=== PATIENT | female | born 1995 | race Caucasian/White ===

== ENCOUNTER 2016-07-01 00:27 | Emergency (ER) | payer OTHER ==
--- NOTE | 2016-07-01 00:59 | PDOC ---
History of Present Illness <Edil Mistry - Last Filed: 07/01/16 01:07> - General History Source: Patient, Old Records Exam Limitations: No Limitations - History of Present Illness Initial Comments: 07/01/16 01:21 The patient is a 20 year old female (; currently approximately 9 weeks ), with no significant past medical history, who presents to the emergency department with a sore throat and cough since earlier tonight. The patient reports that she was drinking tea tonight and subsequently began coughing so she came to the ED for further evaluation. Currently in the ED, the patient is endorsing a sore throat. The patient denies fever, chills, nausea or vomiting. The patient denies any sick contacts. Allergies: None reported. Past Surgical History: Appendectomy. Social History: Non smoker. Denies alcohol or drug use. PCP: Dr. Navarrete <Brooklynn Jose - Last Filed: 07/01/16 01:21> - General Chief Complaint: Sore Throat Stated Complaint: 9 WKS PREG/SORE THROAT/COLD SYMPTOMS Time Seen by Provider: 07/01/16 00:58 Past History - Past Medical History Suicide Attempt (Hx): No - Surgical History Appendectomy: Yes - Immunization History Immunization Up to Date: Yes - Psycho/Social/Smoking Cessation Hx Anxiety: No Suicidal Ideation: No Smoking Status: No Smoking History: Never smoked Have you smoked in the past 12 months: No Number of Cigarettes Smoked Daily: 0 Hx Alcohol Use: No Drug/Substance Use Hx: No Substance Use Type: None Hx Substance Use Treatment: No <Edil Mistry - Last Filed: 07/01/16 01:07> <Brooklynn Jose - Last Filed: 07/01/16 01:21> - Past Medical History Allergies/Adverse Reactions: Allergies Allergy/AdvReac Type Severity Reaction Status Date / Time No Known Allergies Allergy Verified 07/01/16 00:55 Home Medications: Ambulatory Orders NK [No Known Home Medication] 12/04/15 Review of Systems - Review of Systems Able to Perform ROS?: Yes Comments:: 07/01/16 01:13 GENERAL/CONSTITUTIONAL: No fever or chills. No weakness. HEAD, EYES, EARS, NOSE AND THROAT: +Sore throat. No change in vision. No ear pain or discharge. CARDIOVASCULAR: No chest pain or shortness of breath. RESPIRATORY: +Cough. No wheezing or hemoptysis. GASTROINTESTINAL: No nausea, vomiting, diarrhea or constipation. GENITOURINARY: No dysuria, frequency, or change in urination. MUSCULOSKELETAL: No joint or muscle swelling or pain. No neck or back pain. SKIN: No rash. NEUROLOGIC: No headache, vertigo, loss of consciousness, or change in strength/ sensation. ENDOCRINE: No increased thirst. No abnormal weight change. HEMATOLOGIC/LYMPHATIC: No anemia, easy bleeding, or history of blood clots. ALLERGIC/IMMUNOLOGIC: No hives or skin allergy. <Brooklynn Jose - Last Filed: 07/01/16 01:21> *Physical Exam - Vital Signs Last Vital Signs Temp Pulse Resp BP Pulse Ox 98 F 75 20 116/72 100 07/01/16 00:57 07/01/16 00:57 07/01/16 00:57 07/01/16 00:57 07/01/16 00:57 <Edil Mistry - Last Filed: 07/01/16 01:07> - Vital Signs Last Vital Signs Temp Pulse Resp BP Pulse Ox 98 F 75 20 116/72 100 07/01/16 00:57 07/01/16 00:57 07/01/16 00:57 07/01/16 00:57 07/01/16 00:57 - Physical Exam Comments: 07/01/16 01:12 GENERAL: Awake, alert, and fully oriented, in no acute distress. HEAD: No signs of trauma. EYES: PERRLA, EOMI, sclera anicteric, conjunctiva clear. ENT: Auricles normal inspection, hearing grossly normal, nares patent, oropharynx clear without exudates. Moist mucosa. NECK: Normal ROM, supple, no lymphadenopathy, JVD, or masses. LUNGS: Breath sounds equal, clear to auscultation bilaterally. No wheezes, and no crackles. HEART: Regular rate and rhythm, normal S1 and S2, no murmurs, rubs or gallops. ABDOMEN: Soft, nontender, normoactive bowel sounds. No guarding, no rebound. No masses. EXTREMITIES: Normal range of motion, no edema. No clubbing or cyanosis. No cords, erythema, or tenderness. NEUROLOGICAL: Cranial nerves II through XII intact. Normal speech, normal gait. SKIN: Warm, dry, normal turgor, no rashes or lesions noted. <Brooklynn Jose - Last Filed: 07/01/16 01:21> *DC/Admit/Observation/Transfer - Discharge Dispostion Admit: No - Attestations Physician Attestion: 07/01/16 00:59 I, Dr. Edil Mistry, attest that this document has been prepared under my direction and personally reviewed by me in its entirety. I further attest, that it accurately reflects all work, treatment, procedures and medical decision -making performed by me. <Edil Mistry - Last Filed: 07/01/16 01:07> - Attestations Scribe Attestion: 07/01/16 01:11 Documentation prepared by Brooklynn Jose, acting as medical director occupational health for Edil Mistry MD/DO. <Brooklynn Jose - Last Filed: 07/01/16 01:21> Diagnosis at time of Disposition: URI (upper respiratory infection) Qualifiers: URI type: unspecified viral URI Qualified Code(s): J06.9 - Acute upper respiratory infection, unspecified - Discharge Dispostion Disposition: HOME Condition at time of disposition: Good - Referrals Referrals: Steph Navarrete MD [Primary Care Provider] - - Patient Instructions Printed Discharge Instructions: DI for Viral Upper Respiratory Infection -- Adult Additional Instructions: Evania- You can have tylenol for pain or fever. Use a Tablespoon of honey every hour to coat the throat and supress the cough. Follow up with your doctor tomorrow. Return to us if any problems. Best- Dr. Edil Mistry
[2016-07-01 01:09] VITALS: BP 116/72; PULSE 75; TEMP 98; BMI 21.9
== END 2016-07-01 01:50 | disposition home or self-care (01) ==
LOC: JER 00:27
DX: J06.9 Acute upper respiratory infection, unspecified (principal); Z3A.09 9 weeks gestation of pregnancy
CPT/HCPCS: 87070; 87077; 99281-25

== ENCOUNTER 2016-07-06 21:13 | Emergency (ER) | payer OTHER ==
[2016-07-06 21:19] VITALS: BP 112/55; PULSE 98; TEMP 98.3; BMI 21.9
--- NOTE | 2016-07-06 21:29 | PDOC ---
History of Present Illness - General Chief Complaint: Headache Stated Complaint: HEADACHE Time Seen by Provider: 07/06/16 21:28 History Source: Patient Exam Limitations: No Limitations - History of Present Illness Initial Comments: 07/06/16 21:56 Came to emergency department for evaluation of facial pain, swelling, fevers Tmax 100.7 at home, and thick yellow white drainage from nose. Is 12 weeks and has taken no medication for relief of same. Denies cough, nausea vomiting, no vaginal drainage bleeding or problems with thus far. 07/06/16 21:56 07/06/16 23:09 Timing/Duration: reports: unknown Severity: Yes: moderate Associated Symptoms: reports: denies symptoms. denies: fever/chills, loss of consciousness Past History - Travel Traveled outside of the country in the last 30 days: No Close contact w/someone who was outside of country & ill: No - Past Medical History Allergies/Adverse Reactions: Allergies Allergy/AdvReac Type Severity Reaction Status Date / Time No Known Allergies Allergy Verified 07/06/16 21:15 Home Medications: Ambulatory Orders Amoxicillin - [Amoxicillin 500mg Capsule -] 500 mg PO TID #21 capsule 07/06/16 Suicide Attempt (Hx): No - Surgical History Appendectomy: Yes - Immunization History Immunization Up to Date: Yes - Psycho/Social/Smoking Cessation Hx Anxiety: No Suicidal Ideation: No Smoking Status: No Smoking History: Never smoked Have you smoked in the past 12 months: No Number of Cigarettes Smoked Daily: 0 Hx Alcohol Use: No Drug/Substance Use Hx: No Substance Use Type: None Hx Substance Use Treatment: No Review of Systems - Review of Systems Able to Perform ROS?: Yes Is the patient limited Swedish proficient: Yes Constitutional: Yes: Symptoms Reported, See HPI, Malaise HEENTM: Yes: Symptoms Reported, See HPI, Nose Congestion Respiratory: Yes: See HPI, Cough (nonproductive). No: Symptoms reported, Shortness of Breath, Wheezing ABD/GI: No: Symptoms Reported Musculoskeletal: No: Symptoms Reported All Other Systems: Reviewed and Negative *Physical Exam - Vital Signs Last Vital Signs Temp Pulse Resp BP Pulse Ox 98.3 F 98 H 18 112/55 99 07/06/16 21:16 07/06/16 21:16 07/06/16 21:16 07/06/16 21:16 07/06/16 21:16 - Physical Exam General Appearance: Yes: Nourished, Appropriately Dressed, Apparent Distress, Mild Distress, Moderate Distress HEENT: positive: ZANDER, TMs Normal (congestive but landmarks easily visualized), Nasal Congestion, Rhinorrhea, Sinus Tenderness (frontal, ethmoid, and maxillary sinus tenderness and fullness, worse on the right than the left), Other (thick whitish yellow posterior sinus drainage). negative: Normal ENT Inspection, Pharynx Normal, Pharyngeal Erythema Neck: positive: Supple, Lymphadenopathy (R), Lymphadenopathy (L) (tenderness ) Respiratory/Chest: positive: Lungs Clear, Normal Breath Sounds. negative: Wheezing Cardiovascular: positive: Regular Rhythm Gastrointestinal/Abdominal: positive: Soft. 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, Fully Oriented, Alert, Normal Mood/ Affect, Normal Response, Motor Strength 5/5 Progress Note - Progress Note Progress Note: Sinusitis, as patient has fever, has tried [id number] and old-fashioned remedies with no success Will treat with amoxicillin and have patient approval from [employer] tomorrow for continued use for antibiotics and first trimester *DC/Admit/Observation/Transfer Diagnosis at time of Disposition: Sinusitis Qualifiers: Sinusitis location: frontal Chronicity: acute Recurrence: not specified as recurrent Qualified Code(s): J01.10 - Acute frontal sinusitis, unspecified - Discharge Dispostion Disposition: HOME Condition at time of disposition: Stable Admit: No - Prescriptions Prescriptions: Amoxicillin - [Amoxicillin 500mg Capsule -] 500 mg PO TID #21 capsule - Referrals Referrals: Steph Navarrete MD [Primary Care Provider] - - Patient Instructions Printed Discharge Instructions: DI for Sinusitis Additional Instructions: Rest, drink lots of fluids: Teas, water, soups Saltwater gargles. Consider humidifier in room at night Steamy showers/seem to face break up mucus Avoid contact with allergens, exposure to pollens, close windows on a windy day Lots of handwashing and good hygiene Tylenol for fever and pain Amoxicillin 500 mg 3 times a day, verifying with OB/ [employer] doctor to ensure in agreement with plan Followup with private physician in one to 2 days as needed Return to emergency department for worsened symptoms, fevers, dehydration - Post Discharge Activity Work/School Note: Back to Work
[2016-07-06] MEDS ORDERED: AMOXICILLIN 250 MG CAPSULE ONE (21:35)
== END 2016-07-06 22:15 | disposition home or self-care (01) ==
LOC: JER 21:13 → JERFT 21:13
DX: O99.89 Other specified diseases and conditions complicating pregnancy, childbirth and the puerperium (principal); J01.10 Acute frontal sinusitis, unspecified; Z3A.12 12 weeks gestation of pregnancy
CPT/HCPCS: 99281-25

== ENCOUNTER 2017-01-12 16:02 | Inpatient (IN) | payer OTHER ==
[2017-01-12] MEDS ORDERED: DEXTROSE 5%-LACTATED RINGERS 500 ML IV SCH ×2 (16:30→17:30)
[2017-01-12] MEDS ORDERED: DEXTROSE 5%-LACTATED RINGERS 1,000 ML IV SCH (19:30)
[2017-01-12] MEDS ORDERED: PROMETHAZINE HCL 25 MG/1 ML VIAL IVPB ONE (21:15)
[2017-01-12] MEDS ORDERED: BUTORPHANOL TARTRATE 1 MG/ML VIAL IVPB ONE (21:15)
[2017-01-13] MEDS ORDERED: AMPICILLIN - 2 GM in SODIUM CHLORIDE 100 ML IVPB ONE (04:50)
[2017-01-13 04:57] LABS: BASOPHIL 0.4 % (0-2.0); EOSINOPHIL 0.2 % (0-4.5); MCH 31.7 pg (25.7-33.7); MCHC 33.9 g/dl (32.0-36.0); MEAN CELL VOLUME 93.4 fl (80-96); MEAN PLT VOLUME 10.1 fl (7.5-11.1); NEUTROPHILS 77.4 % (42.8-82.8); PLATELET COUNT 147 K/MM3 (134-434); RDW 13.5 % (11.6-15.6); WHITE BLOOD COUNT 12.5 K/mm3 (4.0-10.0)
[2017-01-13 05:10] LABS: INR 0.97 (0.82-1.09)
[2017-01-13 05:12] LABS: ACTIVATED PTT 27.9 SECONDS (26.9-34.4)
[2017-01-13 05:24] VITALS: BMI 25.1
[2017-01-13 05:34] LABS: ALBUMIN 2.6 g/dl (3.4-5.0); ALK PHOS 271 U/L (45-117); ANION GAP 7 (8-16); BILIRUBIN,TOTAL 0.7 mg/dL (0.2-1.0); CALCIUM 8.9 mg/dL (8.5-10.1); CO2 28 mmol/L (21-32); CREATININE 0.8 mg/dL (0.55-1.02); GLUCOSE,RANDOM 98 mg/dL (74-106); SGOT/AST 23 U/L (15-37); SGPT/ALT 25 U/L (12-78); TOT PROT 6.2 g/dl (6.4-8.2)
[2017-01-13] MEDS ORDERED: TUBERCULIN PPD 5 TU/0.1ML SYRINGE (IN PATIENT USE ONLY) ID ONE (05:45)
[2017-01-13 05:53] LABS: HIV 1 & 2 AB NEGATIVE; HIV 1 AGp24 NEGATIVE
--- NOTE | 2017-01-13 06:27 | HP ---
Admitting History and Physical - Admission Chief Complaint: labor pains History of Present Illness: 21 y/o at 38.4 weeks with complaints of labor pains. She was here during the day and stayed with complaints of pain. She SROM at 4am now with dilation of 2-3cm. The FHT developed a sinusidoal type of pattern but is now cat 1. She is a patient of [facility]. 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: Alzheimer's, CVA, Dementia, Migraine, Multiple Sclerosis, Peripheral Neuropathy, Parkinson's, Seizure, Syncope, TIA, Vertigo, Other Cardiovascular: No: AFIB, Aneurysm, Aortic Insufficiency, Aortic Stenosis, CAD, CHF, Deep Vein Thrombosis, HTN, Hyperlipdemia, NM, Mitral Insufficiency, Mitral Stenosis, Murmur, Pulmonary Hypertension, Other Pulmonary: No: Asthma, Bronchitis, Cancer, COPD, O2 Dependent, Pneumonia, Previously Intubated, Pulmonary Embolus, Pulmonary Fibrosis, Sleep Apnea, Other Gastrointestinal: No: Ascites, Cancer, Constipation, Crohn's Disease, Diverticulitis, Diverticulosis, Esophageal Varices, Gastritis, GERD, GI Bleed, Hemorrhoids, Hiatal Hernia, Inflamatory Bowel Disease, Irritable Bowel Disease, Pancreatitis, Peptic Ulcer Disease, Ulcerative Colitis, Other Hepatobiliary: No: Cirrhosis, Cholelithiasis, Cholecystitis, Choledocholithiasis , Hepatitis A, Hepatitis B, Hepatitis C, Other Renal/: No: Renal Failure, Renal Inusuff, BPH, Cancer, Hematuria, Hemodialysis , Neurogenic Bladder, Renal Calculi, UTI, Other Reproductive: No: Ectopic , Endometriosis, Fibroids, PID, Polycystic Ovary Syndrome, Postmenopausal, Other ...LMP: 08/23/15 ...: 2 ...Para: 0 Heme/Onc: No: Anemia, B12 Deficiency, Bleeding Disorder, Cancer, Current Chemotherapy, Current Radiation Therapy, Hemochromatosis, Hypercoaguable State, Myeloproliferative Synd, Sickle Cell Disease, Sickle Cell Trait, Thrombocytopenia, Other Psych: No: Addictions, Anxiety, Bipolar, Depression, Panic, Psychosis, Schizophrenia, Other Musculoskeletal: No: Bursitis, Chronic low back pain, Hemiparesis, Hemiplegia, Osteoarthritis, Paraplegia, Other Dermatology: No: Basal Cell, Cellulitis, Eczema, Melanoma, Psoriasis, Squamous Cell, Other - Past Surgical History Past Surgical History: No: None, AAA Repair, AICD, Amputation, Appendectomy, Arthrosocopy, AV Fistula/Graft, Bariatric Surgery, Breast Biopsy, Bypass, CABG, Carotid Endarterectomy, Cataract Removal, Cholecystectomy, Colectomy, Colonoscopy, Colostomy, Craniotomy, , Cystectomy, Hernia Repair, Hysterectomy, Ileal Conduit, Ileosotomy, Joint Replacement, Kidney Transplant, Laminectomy, Liver Transplant, Mastectomy, Nephrectomy, Oopherectomy, Orchiectomy, Permanent Pacemaker, Prostatectomy, Splenectomy, Stent, Thoracotomy , TURP, Tonsillectomy, Tubal Ligation, Upper Endoscopy, Valve Replacement, Vasectomy, Vein Stripping/Ligation - Advance Directives Advance Directives: No: Living Will, Health Care Proxy, DNR, Organ Donor, Tissue Donor, MOLST - Smoking History Smoking history: Unknown if ever smoked Have you smoked in the past 12 months: No Aproximately how many cigarettes per day: 0 - Alcohol/Substance Use Hx Alcohol Use: No Home Medications - Allergies Allergies/Adverse Reactions: Allergies Allergy/AdvReac Type Severity Reaction Status Date / Time No Known Allergies Allergy Verified 01/12/17 16:47 - Home Medications Home Medications: Ambulatory Orders Vit/Iron Fumarate/FA [ Tablet] 1 tab PO DAILY 12/31/16 Review of Systems - Review of Systems Constitutional: reports: No Symptoms Eyes: reports: No Symptoms HENT: reports: No Symptoms Neck: reports: No Symptoms Cardiovascular: reports: No Symptoms Gastrointestinal: reports: No Symptoms Genitourinary: reports: No Symptoms Breasts: reports: No Symptoms Reported Musculoskeletal: reports: No Symptoms Integumentary: reports: No Symptoms Neurological: reports: No Symptoms Endocrine: reports: No Symptoms Hematology/Lymphatic: reports: No Symptoms Psychiatric: reports: No Symptoms Physical Examination Vital Signs: Vital Signs Temperature 97.6 F 01/13/17 05:13 Pulse Rate 77 01/13/17 05:13 Respiratory Rate 20 01/13/17 05:13 Blood Pressure 111/65 01/13/17 05:13 O2 Sat by Pulse Oximetry (%) Constitutional: Yes: Well Nourished Eyes: Yes: WNL HENT: Yes: WNL Neck: Yes: WNL Cardiovascular: Yes: WNL Respiratory: Yes: WNL Gastrointestinal: Yes: WNL ...Rectal Exam: Yes: WNL Renal/: Yes: WNL Musculoskeletal: Yes: WNL Extremities: Yes: WNL Neurological: Yes: WNL ...Motor Strength: WNL Psychiatric: Yes: WNL Labs: CBC, BMP 01/13/17 04:40 01/13/17 04:40 Assessment/Plan as above admit labs pitocin
[2017-01-13] MEDS: OXYTOCIN 15 UNITS/ LR 250 ML 250 ML IVPB SCH ×2 (07:40→08:12)
--- NOTE | 2017-01-13 07:40 | PN ---
Ante-Partal Exam - Subjective Vital Signs: Vital Signs Temperature 98.2 F 01/13/17 07:00 Pulse Rate 94 H 01/13/17 07:00 Respiratory Rate 20 01/13/17 07:00 Blood Pressure 126/67 01/13/17 07:00 O2 Sat by Pulse Oximetry (%) Bleeding: No Headache: No Visual changes: No Right upper quadrant pain: No - Contractions Contractions: Yes Regularity: Irregular Intensity: Mild/Mod Monitor Mode: External - Exam during Labor Heart Rate: 150 Variability: Moderate Heart Rate Location: Midline Category: I Monitor Accelerations: Present Monitor Decelerations: None Exam: Vaginal Dilatation (cm): 2 Effacement (%): 70 Amniotic Membrane Status: Ruptured Presentation: Vertex Station: -2 - Assessment/Plan Assessment/Plan: as above will start pitocin cat 1
[2017-01-13] MEDS ORDERED: BUTORPHANOL TARTRATE 1 MG/ML VIAL IVPUSH PRN (07:45)
[2017-01-13] MEDS ORDERED: PROMETHAZINE HCL 25 MG/1 ML VIAL IVPUSH PRN (07:46)
[2017-01-13] MEDS ORDERED: AMPICILLIN - 1 GM in SODIUM CHLORIDE 100 ML IVPB SCH (09:00)
--- NOTE | 2017-01-13 09:33 | PN ---
Progress Note (short form) - Note Progress Note: cx 2 cm 70 vx -2 mr, forbag intact , arom , clear, fh cat i tracing, irregular contraction plan cont pitocin, fhm
--- NOTE | 2017-01-13 11:36 | PN ---
Progress Note (short form) - Note Progress Note: cx 2 cm 75 vx -2 mr, fhr cat1 , regular contraction, wants pain meds , epidural , stadol discussed , rba explained , declined epidural
[2017-01-13] MEDS: ELECTROLYTE-148 SOLN 1,000 ML IV SCH ×3 (11:50→17:34)
[2017-01-13] MEDS ORDERED: ELECTROLYTE-148 SOLN 1,000 ML IV SCH (12:00)
[2017-01-13] MEDS ORDERED: FENTANYL/BUPIVACAINE/NS/PF - PCEA - 50 ML DISP.SYRIN EP SCH (12:20)
[2017-01-13] MEDS: FENTANYL/BUPIVACAINE/NS/PF - PCEA - 50 ML DISP.SYRIN EP SCH ×2 (13:00→17:00)
--- NOTE | 2017-01-13 18:07 | PN ---
Ante-Partal Exam - Subjective Vital Signs: Vital Signs Temperature 98.6 F 01/13/17 16:00 Pulse Rate 87 01/13/17 17:00 Respiratory Rate 20 01/13/17 17:00 Blood Pressure 115/74 01/13/17 17:00 O2 Sat by Pulse Oximetry (%) 100 01/13/17 17:05 Bleeding: No Headache: No Visual changes: No Right upper quadrant pain: No - Contractions Contractions: Yes Regularity: Regular Intensity: Mild/Mod Monitor Mode: External - Exam during Labor Heart Rate: 150 Category: I Monitor Accelerations: Present Monitor Decelerations: None Exam: Vaginal Dilatation (cm): 3 Amniotic Membrane Status: Ruptured Nitrazine Test: Positive Amniotic Fluid: Clear Presentation: Vertex Station: -2 Remarks: reviewed Preston with pt and probable op position cat 1 continue care possible cs
[2017-01-13] MEDS ORDERED: CITRIC ACID/SODIUM CITRATE 30 ML UNIT-DOSE CUP PO ONE (19:17)
[2017-01-13] MEDS ORDERED: LIDOCAINE HCL 2% (20ML MULTI-DOSE VIAL) NR ONE (20:05)
[2017-01-13] MEDS ORDERED: LIDOCAINE 1%/EPI 1:100000 (20 ML MULTI DOSE VIAL) ONE (20:06)
[2017-01-13] MEDS ORDERED: IBUPROFEN 600 MG TABLET (FP) PO PRN (20:36)
[2017-01-13] MEDS ORDERED: ONDANSETRON 4 MG/2 ML VIAL IVPUSH PRN (20:36)
[2017-01-13] MEDS ORDERED: METHYLERGONOVINE MALEATE 0.2 MG/1 ML AMP IM PRN (20:49)
--- NOTE | 2017-01-13 20:49 | PN ---
Delivery - Delivery Section: Primary Type of Anesthesia: Spinal (rop with can x2) EBL (cc): 600 Delivery, Single - Feeding Plan Initial Plan: Elected not to breastfeed exclusively throughout hospitalization
[2017-01-13] MEDS ORDERED: OXYTOCIN 20 UNITS in 0.9% NS 1,000 ML IV SCH (21:00)
[2017-01-13] MEDS: IBUPROFEN 800 MG/8 ML IJ IVPB PRN (23:31)
[2017-01-14] MEDS: IBUPROFEN 800 MG/8 ML IJ IVPB PRN ×2 (08:21→20:25)
[2017-01-14 08:35] LABS: BASOPHIL 0.2 % (0-2.0); EOSINOPHIL 0.2 % (0-4.5); MCH 31.7 pg (25.7-33.7); MCHC 33.8 g/dl (32.0-36.0); MEAN CELL VOLUME 93.7 fl (80-96); MEAN PLT VOLUME 9.5 fl (7.5-11.1); NEUTROPHILS 79.4 % (42.8-82.8); PLATELET COUNT 133 K/MM3 (134-434); RDW 13.7 % (11.6-15.6)
--- NOTE | 2017-01-14 09:13 | PN ---
Post Progress Note Post Day: 1 Type of Delivery: Primary C/S Vital Signs: Vital Signs Temperature 98.8 F 01/14/17 08:17 Pulse Rate 82 01/14/17 08:17 Respiratory Rate 20 01/14/17 08:17 Blood Pressure 111/60 01/14/17 08:17 O2 Sat by Pulse Oximetry (%) 100 01/13/17 22:15 Breast Exam: Yes: Soft Uterus: Yes: Fundus Firm Incision: Yes: Dressing dry and intact Abdomen/GI: Yes: Abdomen soft Lochia: Yes: Rubra Lochia, amount: Small Extremities: Yes: Calves non-tender Perineum: Yes: Intact Activity: Ambulating - Labs Labs: CBC WBC 17.0 K/mm3 (4.0-10.0) H D 01/14/17 07:35 RBC 3.84 M/mm3 (3.60-5.2) 01/14/17 07:35 Hgb 12.2 GM/dL (10.7-15.3) D 01/14/17 07:35 Hct 36.0 % (32.4-45.2) 01/14/17 07:35 MCV 93.7 fl (80-96) 01/14/17 07:35 MCH 31.7 pg (25.7-33.7) 01/14/17 07:35 MCHC 33.8 g/dl (32.0-36.0) 01/14/17 07:35 RDW 13.7 % (11.6-15.6) 01/14/17 07:35 Plt Count 133 K/MM3 (134-434) L 01/14/17 07:35 MPV 9.5 fl (7.5-11.1) 01/14/17 07:35 Neutrophils % 79.4 % (42.8-82.8) 01/14/17 07:35 Lymphocytes % 12.1 % (8-40) 01/14/17 07:35 Monocytes % 8.1 % (3.8-10.2) 01/14/17 07:35 Eosinophils % 0.2 % (0-4.5) 01/14/17 07:35 Basophils % 0.2 % (0-2.0) 01/14/17 07:35 Assessment/Plan as above reg diet check labs
--- NOTE | 2017-01-14 10:56 | PN ---
Progress Note (short form) - Note Progress Note: Post op day#1.S/P C section under spinal with Duramorph uneventful.Patient stable and does not c/o pain.No any anesthesia related problem.Patient DC from the anesthesia care.
[2017-01-14] MEDS: IBUPROFEN 600 MG TABLET (FP) PO PRN (13:42)
[2017-01-14] MEDS: SIMETHICONE 80 MG TAB.CHEW (FP) PO PRN (13:42)
[2017-01-14] MEDS: ACETAMINOPHEN 325 MG TABLET (FP) PO PRN (17:12)
[2017-01-14] MEDS ORDERED: BISACODYL 10 MG SUPP.RECT RC PRN (20:49)
[2017-01-15] MEDS: SIMETHICONE 80 MG TAB.CHEW (FP) PO PRN ×4 (04:54→23:10)
[2017-01-15] MEDS: ACETAMINOPHEN 325 MG TABLET (FP) PO PRN ×5 (04:54→23:11)
[2017-01-15] MEDS: IBUPROFEN 600 MG TABLET (FP) PO PRN ×5 (04:58→23:15)
--- NOTE | 2017-01-15 10:06 | PN ---
Post Progress Note - Subjective Subjective: 21 yo Para 1 status post primary , seen and evaluated. She c/o incision pain. Post Day: 2 Type of Delivery: Primary C/S Vital Signs: Vital Signs Temperature 98.1 F 01/15/17 08:58 Pulse Rate 73 01/15/17 08:58 Respiratory Rate 18 01/15/17 08:58 Blood Pressure 122/67 01/15/17 08:58 O2 Sat by Pulse Oximetry (%) 100 01/13/17 22:15 Breast Exam: Yes: Soft Uterus: Yes: Fundus Firm Incision: Yes: Dressing dry and intact Abdomen/GI: Yes: Abdomen soft, Tolerating PO Lochia: Yes: Rubra Lochia, amount: Small Extremities: Yes: Calves non-tender Perineum: Yes: Intact Activity: Other (She's out of bed to chair) - Labs Labs: CBC WBC 17.0 K/mm3 (4.0-10.0) H D 01/14/17 07:35 RBC 3.84 M/mm3 (3.60-5.2) 01/14/17 07:35 Hgb 12.2 GM/dL (10.7-15.3) D 01/14/17 07:35 Hct 36.0 % (32.4-45.2) 01/14/17 07:35 MCV 93.7 fl (80-96) 01/14/17 07:35 MCH 31.7 pg (25.7-33.7) 01/14/17 07:35 MCHC 33.8 g/dl (32.0-36.0) 01/14/17 07:35 RDW 13.7 % (11.6-15.6) 01/14/17 07:35 Plt Count 133 K/MM3 (134-434) L 01/14/17 07:35 MPV 9.5 fl (7.5-11.1) 01/14/17 07:35 Neutrophils % 79.4 % (42.8-82.8) 01/14/17 07:35 Lymphocytes % 12.1 % (8-40) 01/14/17 07:35 Monocytes % 8.1 % (3.8-10.2) 01/14/17 07:35 Eosinophils % 0.2 % (0-4.5) 01/14/17 07:35 Basophils % 0.2 % (0-2.0) 01/14/17 07:35 Problem List - Problems (1) Status post primary low transverse section Code(s): Z98.891 - HISTORY OF UTERINE SCAR FROM PREVIOUS SURGERY Assessment/Plan Status post primary Stable Analgesia as needed Continue routine post op care
[2017-01-16] MEDS: ACETAMINOPHEN 325 MG TABLET (FP) PO PRN ×5 (03:17→21:11)
[2017-01-16] MEDS: SIMETHICONE 80 MG TAB.CHEW (FP) PO PRN ×5 (03:17→21:11)
[2017-01-16] MEDS: IBUPROFEN 600 MG TABLET (FP) PO PRN ×5 (03:19→21:12)
[2017-01-16 08:25] LABS: BASOPHIL 0.4 % (0-2.0); EOSINOPHIL 1.1 % (0-4.5); MCH 32.1 pg (25.7-33.7); MCHC 34.2 g/dl (32.0-36.0); MEAN CELL VOLUME 93.9 fl (80-96); MEAN PLT VOLUME 9.6 fl (7.5-11.1); NEUTROPHILS 73.6 % (42.8-82.8); PLATELET COUNT 148 K/MM3 (134-434); RDW 13.7 % (11.6-15.6)
--- NOTE | 2017-01-16 08:44 | PN ---
Progress Note (short form) - Note Progress Note: s/p c/s ambulating, has cramps CBC, BMP 01/16/17 07:00 01/13/17 04:40 Last Vital Signs Temp Pulse Resp BP Pulse Ox 97.8 F 77 18 112/69 100 01/15/17 22:00 01/15/17 22:00 01/15/17 22:00 01/15/17 22:00 01/13/17 22:15 abdomen soft, no distension, incision dry, clean no calf tenderness no excess vaginal bleeding plan ambulate , cbc in am
[2017-01-17] MEDS: IBUPROFEN 600 MG TABLET (FP) PO PRN (07:53)
[2017-01-17] MEDS: SIMETHICONE 80 MG TAB.CHEW (FP) PO PRN (07:53)
[2017-01-17] MEDS: ACETAMINOPHEN 325 MG TABLET (FP) PO PRN (07:55)
[2017-01-17 10:00] VITALS: BP 112/76; PULSE 81; TEMP 97.6
--- NOTE | 2017-01-17 12:40 | PN ---
Post Progress Note Post Day: 4 Type of Delivery: Repeat C/S Vital Signs: Vital Signs Temperature 97.6 F 01/17/17 09:57 Pulse Rate 81 01/17/17 09:57 Respiratory Rate 18 01/17/17 09:57 Blood Pressure 112/76 01/17/17 09:57 O2 Sat by Pulse Oximetry (%) 100 01/13/17 22:15 Breast Exam: Yes: Soft Uterus: Yes: Fundus Firm, Fundus @ umbilicus Incision: Yes: Sutures intact Abdomen/GI: Yes: Abdomen soft Lochia: Yes: Serosa Lochia, amount: Small Extremities: Yes: Calves non-tender Activity: Ambulating - Labs Labs: CBC WBC 10.0 K/mm3 (4.0-10.0) D 01/16/17 07:00 RBC 3.22 M/mm3 (3.60-5.2) L 01/16/17 07:00 Hgb 10.3 GM/dL (10.7-15.3) L D 01/16/17 07:00 Hct 30.2 % (32.4-45.2) L D 01/16/17 07:00 MCV 93.9 fl (80-96) 01/16/17 07:00 MCH 32.1 pg (25.7-33.7) 01/16/17 07:00 MCHC 34.2 g/dl (32.0-36.0) 01/16/17 07:00 RDW 13.7 % (11.6-15.6) 01/16/17 07:00 Plt Count 148 K/MM3 (134-434) 01/16/17 07:00 MPV 9.6 fl (7.5-11.1) 01/16/17 07:00 Neutrophils % 73.6 % (42.8-82.8) 01/16/17 07:00 Lymphocytes % 18.8 % (8-40) D 01/16/17 07:00 Monocytes % 6.1 % (3.8-10.2) 01/16/17 07:00 Eosinophils % 1.1 % (0-4.5) D 01/16/17 07:00 Basophils % 0.4 % (0-2.0) 01/16/17 07:00 Assessment/Plan Pt POD#4 s/p c/s doing well stable for discharge home pain medications prn to follow up in clinic 1 week for wound check
== END 2017-01-17 14:15 | disposition home or self-care (01) | DRG 540 ==
LOC: JDEL 16:02 → JLDR 01-13 04:20 → J3W 01-13 22:25
PROVIDERS: ADMIT Obstetrics & Gynecology; ATTEND Obstetrics & Gynecology
PROC: 10D00Z1 Extraction of Products of Conception, Low, Open Approach (ICD-10-PCS; principal; 2017-01-13)
DX: O76 Abnormality in fetal heart rate and rhythm complicating labor and delivery (principal); Z3A.38 38 weeks gestation of pregnancy; Z37.0 Single live birth
CPT/HCPCS: 36415; 71020-TC; 80053; 85025; 85610; 85730; 86593; 86762; 86850; 86900; 86901; 87340; 87389

== ENCOUNTER 2017-11-21 00:41 | Emergency (ER) | payer OTHER ==
[2017-11-21 01:30] VITALS: BP 101/64; PULSE 87; TEMP 98; BMI 20.9
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
== END 2017-11-21 04:01 | disposition home or self-care (01) ==
LOC: JER 00:41
DX: S10.83XA Contusion of other specified part of neck, initial encounter (principal); Y04.2XXA Assault by strike against or bumped into by another person, initial encounter; Y93.89 Activity, other specified; Y92.89 Other specified places as the place of occurrence of the external cause; Y99.8 Other external cause status; Y07.03 Male partner, perpetrator of maltreatment and neglect
CPT/HCPCS: 70360-TC-FY; 84703; 99282-25

== ENCOUNTER 2018-01-04 08:11 | Emergency (ER) | payer OTHER ==
[2018-01-04 08:33] VITALS: BMI 23.5
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
[2018-01-04] MEDS ORDERED: ACETAMINOPHEN 500 MG TABLET (FP) PO ONE (09:12)
[2018-01-04] MEDS ORDERED: ACETAMINOPHEN 325 MG TABLET (FP) ONE ×2 (09:13→09:16)
[2018-01-04 09:32] LABS: BASO % 0.4 % (0-2.0); EOS % 0.8 % (0-4.5); HEMATOCRIT 39.8 % (32.4-45.2); HEMOGLOBIN 13.1 GM/dL (10.7-15.3); LYMPH % 34.4 % (8-40); MCH 30.4 pg (25.7-33.7); MCHC 32.9 g/dl (32.0-36.0); MEAN CELL VOLUME 92.4 fl (80-96); MEAN PLT VOLUME 8.3 fl (7.5-11.1); MONO % 5.7 % (3.8-10.2); NEUT % 58.7 % (42.8-82.8); PLATELET COUNT 223 K/MM3 (134-434); RDW 12.5 % (11.6-15.6)
--- NOTE | 2018-01-04 09:42 | EKG ---
Test Reason : Blood Pressure : / mmHG Vent. Rate : 078 BPM Atrial Rate : 078 BPM P-R Int : 180 ms QRS Dur : 096 ms QT Int : 378 ms P-R-T Axes : 062 034 044 degrees QTc Int : 430 ms NORMAL SINUS RHYTHM INCOMPLETE RIGHT BUNDLE BRANCH BLOCK BORDERLINE ECG WHEN COMPARED WITH ECG OF 24-JUN-2011 22:37, NO SIGNIFICANT CHANGE WAS FOUND Confirmed by ANILA JANSEN MD ([id number]) on 01/04/2018 9:42:12 AM Referred By: Confirmed By:ANILA JANSEN MD
[2018-01-04 10:59] LABS: ALK PHOS 43 U/L (45-117); ANION GAP 7 MMOL/L (8-16); BLOOD UREA NITROGEN 10 mg/dL (7-18); CALCIUM 9.2 mg/dL (8.5-10.1); CHLORIDE 107 mmol/L (98-107); CO2 25 mmol/L (21-32); CREATININE 0.9 mg/dL (0.55-1.3); GLUCOSE,RANDOM 85 mg/dL (74-106); POTASSIUM 3.7 mmol/L (3.5-5.1); SGOT/AST 20 U/L (15-37); SGPT/ALT 18 U/L (13-61); SODIUM 139 mmol/L (136-145); TOT PROT 7.5 g/dl (6.4-8.2)
--- NOTE | 2018-01-04 11:33 | PDOC ---
Attending Attestation - Resident Resident Name: Darline Sim - ED Attending Attestation I have performed the following: I have examined & evaluated the patient, The case was reviewed & discussed with the resident, I agree w/resident's findings & plan, Exceptions are as noted - HPI HPI: 01/04/18 11:32 22 years old no significant past medical history presents to the emergency department 2 day history of musculoskeletal chest discomfort. Patient states the pain started on the left side of her chest was tender to palpation worse with movement. Hurts when she takes a very deep breath. No dyspnea on exertion no travel no PE DVT risk factors no leg swelling or hemoptysis no recent surgery No significant family history - Physicial Exam PE: 01/04/18 11:32 Vitals: Triage Vital signs reviewed General Appearance: no acute distress, well nourished well developed, Head: Atraumatic, Neck: Supple;No Nucal rigidity Chest Wall: Reproducible chest wall ttp Cardiac: Regular rate and rhythym, no murmurs, no rubs, no gallops, Lungs: Clear to auscultation bilateral, good air movement bilaterally, Abdomen: Soft, non distended, normal bowel sounds, non tender to palpation Extremities: Full range of motion to all extremities, no cyanosis, clubbing, or edema Skin: Warm and dry, no rashes or lesions, no rash, no petechiae Psych: normal mood, normal affect - Medical Decision Making 01/04/18 13:02 Heart score 1, low risk for PE but unable to use PE or see criteria given that patient is on exogenous estrogen D-dimer negative At this time given a normal EKG negative troponin negative d-dimer reproducible chest discomfort on examination history and examination is most consistent with costochondritis versus muscular skeletal chest discomfort. Patient feels better after IV Tylenol She will continue pain medication at home she will follow-up with her doctor this week she'll return to the emergency department for any severe worsening symptoms or for any concerns. Findings, the need for follow-up and strict return instructions discussed with patient. Heart Score/ECG Review - History History: Slightly suspicious - Electrocardiogram EKG: Normal - Risk Factors Based on the list above the patient has:: No risk factors known - Troponin Troponin: </= normal limit - ECG Impressions Comment:: 01/04/18 11:33 EKG performed at 8:21 AM. Demonstrates normal sinus rhythm no ST elevations or T -wave inversions incomplete right bundle-branch block. Interpreted by me.
[2018-01-04 13:21] VITALS: BP 108/62; PULSE 82; TEMP 98.1
== END 2018-01-04 13:21 | disposition home or self-care (01) ==
LOC: JER 08:11
DX: R07.89 Other chest pain (principal)
CPT/HCPCS: 36415; 71046-TC-FY; 80053; 84484; 84703; 85025; 85379; 93005; 93010; 99283-25

== ENCOUNTER 2018-10-12 12:06 | Emergency (ER) | payer SELFPAY ==
[2018-10-12 12:16] VITALS: BP 107/65; PULSE 70; TEMP 97.9; BMI 20.9
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
[2018-10-12] MEDS ORDERED: IBUPROFEN 600 MG TABLET (FP) PO ONE ×2 (13:12→13:15)
== END 2018-10-12 13:26 | disposition home or self-care (01) ==
LOC: JERFT 12:06
DX: S13.4XXA Sprain of ligaments of cervical spine, initial encounter (principal); G44.209 Tension-type headache, unspecified, not intractable; V89.2XXA Person injured in unspecified motor-vehicle accident, traffic, initial encounter; Y92.488 Other paved roadways as the place of occurrence of the external cause; Y93.89 Activity, other specified; Y99.8 Other external cause status
CPT/HCPCS: 99281-25

== ENCOUNTER 2019-01-20 23:26 | Emergency (ER) | payer OTHER ==
[2019-01-20] MEDS ORDERED: SODIUM CHLORIDE 1,000 ML IV STA (23:59)
[2019-01-20] MEDS ORDERED: ACETAMINOPHEN 1000 MG/100 ML VIAL (NON FORMULARY) IVPB ONE (23:59)
[2019-01-20] MEDS ORDERED: FAMOTIDINE 20 MG/50 ML IVPB 20 MG/50 ML MG IVPB ONE (23:59)
[2019-01-21 00:16] VITALS: BP 122/86; PULSE 78; TEMP 98.1; BMI 20.9
[2019-01-21] MEDS ORDERED: ACETAMINOPHEN INJECTION 100 ML IVPB ONE (00:28)
[2019-01-21] MEDS ORDERED: ONDANSETRON 4 MG/2 ML VIAL ONE ×2 (00:28→02:25)
[2019-01-21] MEDS ORDERED: ONDANSETRON 4 MG/2 ML VIAL IVPUSH ONE ×3 (00:28→23:59)
[2019-01-21] MEDS ORDERED: FAMOTIDINE 20 MG/50 ML IVPB 20 MG/50 ML MG IVPB ONE (00:29)
[2019-01-21 00:47] LABS: BASO % 0.2 % (0-2.0); EOS % 0.9 % (0-4.5); HEMATOCRIT 37.5 % (32.4-45.2); HEMOGLOBIN 12.2 GM/dL (10.7-15.3); LYMPH % 21.8 % (8-40); MCH 30.2 pg (25.7-33.7); MCHC 32.6 g/dl (32.0-36.0); MEAN CELL VOLUME 92.9 fl (80-96); MEAN PLT VOLUME 8.5 fl (7.5-11.1); MONO % 7.9 % (3.8-10.2); NEUT % 69.2 % (42.8-82.8); PLATELET COUNT 211 K/MM3 (134-434); RBC 4.04 M/mm3 (3.60-5.2); RDW 13.3 % (11.6-15.6); WHITE BLOOD COUNT 8.4 K/mm3 (4.0-10.0)
--- NOTE | 2019-01-21 01:06 | PDOC ---
History of Present Illness - General Chief Complaint: Pain, Acute Stated Complaint: ABDOMINAL PAIN Time Seen by Provider: 01/20/19 23:50 History Source: Patient Exam Limitations: No Limitations - History of Present Illness Initial Comments: 01/21/19 01:06 Patient is a 23F with h/o here today complaining of 1 day of vomiting , diarrhea and LUQ epigastric pain. Endorses non-bloody non-bilious vomiting. Denies fevers, chills. Describes pain as a sharp pain without radiation. Endorses sour taste in mouth. Denies lower abdominal pain. Denies vaginal pain and discharge. LMP current. Has non-bloody diarrhea. Brother has similar symptoms, was hospitalized for vomiting. Past History - Past Medical History Allergies/Adverse Reactions: Allergies Allergy/AdvReac Type Severity Reaction Status Date / Time No Known Allergies Allergy Verified 01/21/19 00:13 Home Medications: Ambulatory Orders NK [No Known Home Medication] 11/21/17 Asthma: No Cancer: No Cardiac Disorders: No COPD: No Diabetes: No HTN: No Seizures: No Thyroid Disease: No - Surgical History Appendectomy: Yes - Immunization History Immunization Up to Date: Yes - Psycho Social/Smoking Cessation Hx Smoking Status: No Smoking History: Never smoked Have you smoked in the past 12 months: No Number of Cigarettes Smoked Daily: 0 Information on smoking cessation initiated: No Hx Alcohol Use: No Drug/Substance Use Hx: No Substance Use Type: None Hx Substance Use Treatment: No Review of Systems - Review of Systems Able to Perform ROS?: Yes Comments:: 01/21/19 01:16 GENERAL/CONSTITUTIONAL: No fever or chills. No weakness. HEAD, EYES, EARS, NOSE AND THROAT: No change in vision. No sore throat. CARDIOVASCULAR: No chest pain or shortness of breath RESPIRATORY: No cough, wheezing, or hemoptysis. GASTROINTESTINAL: +nausea, +vomiting, +diarrhea. GENITOURINARY: No dysuria, frequency, or change in urination. MUSCULOSKELETAL: No joint or muscle swelling or pain. No neck or back pain. SKIN: No rash NEUROLOGIC: No headache, vertigo, loss of consciousness, or change in strength/ sensation. ENDOCRINE: No increased thirst. No abnormal weight change HEMATOLOGIC/LYMPHATIC: No anemia, easy bleeding, or history of blood clots. ALLERGIC/IMMUNOLOGIC: No hives or skin allergy. *Physical Exam - Vital Signs Last Vital Signs Temp Pulse Resp BP Pulse Ox 98.1 F 78 20 122/86 99 01/20/19 23:35 01/20/19 23:35 01/20/19 23:35 01/20/19 23:35 01/20/19 23:35 - Physical Exam Comments: 01/21/19 01:18 GENERAL: Awake, alert, and fully oriented, in no acute distress HEAD: No signs of trauma, normocephalic, atraumatic EYES: PERRLA, EOMI, sclera anicteric, conjunctiva clear ENT: Auricles normal inspection, hearing grossly normal, nares patent, oropharynx clear without exudates. Moist mucosa NECK: Normal ROM, supple, no lymphadenopathy, JVD, or masses LUNGS: No distress, speaks full sentences, clear to auscultation bilaterally HEART: Regular rate and rhythm, normal S1 and S2, no murmurs, rubs or gallops, peripheral pulses normal and equal bilaterally. ABDOMEN: Soft, nontender, no peritoneal signs, no guarding, no rebound. EXTREMITIES: Normal inspection, Normal range of motion, no edema. No clubbing or cyanosis. NEUROLOGICAL: Cranial nerves II through XII grossly intact. Normal speech, no focal sensorimotor deficits SKIN: Warm, Dry, normal turgor, no rashes or lesions noted. ED Treatment Course - LABORATORY CBC & Chemistry Diagram: 01/21/19 00:15 01/21/19 00:15 - ADDITIONAL ORDERS Additional order review: 01/21/19 00:15 RBC 4.04 MCV 92.9 MCHC 32.6 RDW 13.3 MPV 8.5 Neutrophils % 69.2 Lymphocytes % 21.8 D Monocytes % 7.9 Eosinophils % 0.9 Basophils % 0.2 - Medications Given in the ED: ED Medications Discontinued Medications Generic Name Dose Route Start Last Admin Trade Name Freq PRN Reason Stop Dose Admin Acetaminophen 1,000 mg 01/20/19 23:59 01/21/19 00:36 Ofirmev Injection - IVPB 01/21/19 00:00 1,000 mg ONCE ONE Administration Famotidine/Sodium Chloride 20 mg in 50 mls @ 100 mls/hr 01/20/19 23:59 00:37 Pepcid 20 Mg Premixed Ivpb - IVPB 01/21/19 00:28 100 mls/hr ONCE ONE Administration Medical Decision Making - Medical Decision Making 01/21/19 01:22 Patient is a 23F here today with vomiting and diarrhea. Vitals normal and stable. Nontender abdomen. Considered various surgical pathologies including cholecystitis, appendicitis, sbo, but not likely given presentation. DDx includes, but is not limited to: gastritis, pancreatitis, uti. Will treat with fluids, pepcid, zofran, tylenol. 01/21/19 03:11 CBC normal CMP normal UA clear Preg negative, lipase negative. Patient reassessed, nontender, tolerating PO. Given return precautions, suspect gastroenteritis as cause. Discharge - Discharge Information Problems reviewed: Yes Clinical Impression/Diagnosis: Vomiting, Diarrhea Condition: Good Disposition: HOME - Admission No - Follow up/Referral Referrals: Steph Navarrete MD [Primary Care Provider] - - Patient Discharge Instructions Patient Printed Discharge Instructions: DI for Vomiting -- Adult Additional Instructions: Please return to the ED immediately if you have any new, worsening or concerning symptoms. Please follow up with your primary care doctor this week. - Post Discharge Activity
[2019-01-21 01:09] LABS: ALBUMIN 3.8 g/dl (3.4-5.0); BILIRUBIN,TOTAL 0.4 mg/dL (0.2-1); BLOOD UREA NITROGEN 11.6 mg/dL (7-18); CALCIUM 9.5 mg/dL (8.5-10.1); CREATININE 0.9 mg/dL (0.55-1.3); POTASSIUM 4.1 mmol/L (3.5-5.1); TOT PROT 7.4 g/dl (6.4-8.2)
[2019-01-21] MEDS ORDERED: SODIUM CHLORIDE 1,000 ML IV STA (02:15)
[2019-01-21 02:47] LABS: EPI CELLS 0.6 /HPF (0-5/HPF); HYALINE CASTS 1 /lpf (0-8); URINE APPEARANCE CLOUDY; URINE BACTERIA 23.4 /hpf (NEGATIVE); URINE BILIRUBIN NEGATIVE (NEGATIVE); URINE COLOR YELLOW; URINE GLUCOSE (UA) NEGATIVE (NEGATIVE); URINE KETONE NEGATIVE (NEGATIVE); URINE LEUK ESTERASE NEGATIVE (NEGATIVE); URINE NITRITE NEGATIVE (NEGATIVE); URINE PROTEIN NEGATIVE (NEGATIVE); URINE RBC 3 /hpf (0-4); URINE UROBILINOGEN 0.2 mg/dL (0.2-1.0); URINE WBC 0 /hpf (0-5)
--- NOTE | 2019-01-21 03:21 | PDOC ---
Attending Attestation - Resident Resident Name: Andrew Nunez - ED Attending Attestation I have performed the following: I have examined & evaluated the patient, The case was reviewed & discussed with the resident, I agree w/resident's findings & plan, Exceptions are as noted - HPI HPI: 01/21/19 03:18 23F pmh here with 1 day of epigastric px a/w n/v/d and sour taste in mouth. No other complaints, no cp, sob, f/c, recent travel. She states that her brother has had similar symptoms recently. - Physicial Exam PE: 01/21/19 03:20 Agree with exam as documented by resident - Medical Decision Making 01/21/19 03:20 Like acute gastroenteritis, gastritis eval preg f/u labs symptomatic tx re-eval labs unremarkable symptomatic improved tolerating po w/o issue dc home
== END 2019-01-21 03:16 | disposition home or self-care (01) ==
LOC: JER 23:26
PROC: 3E033GC Introduction of Other Therapeutic Substance into Peripheral Vein, Percutaneous Approach (ICD-10-PCS; principal; 2019-01-20)
PROC: 3E033GC Introduction of Other Therapeutic Substance into Peripheral Vein, Percutaneous Approach (ICD-10-PCS; 2019-01-20)
DX: K52.9 Noninfective gastroenteritis and colitis, unspecified (principal)
CPT/HCPCS: 36415; 80053; 81003; 83690; 84703; 85025; 99283-25; J0131; J7030

== ENCOUNTER 2020-08-26 10:43 | Emergency (ER) | payer OTHER ==
[2020-08-26 10:46] VITALS: BP 102/70; PULSE 79; TEMP 97; BMI 22.3
[2020-08-26] MEDS ORDERED: KETOROLAC TROMETHAMINE 60 MG/2 ML VIAL IM ONE (10:56)
[2020-08-26] MEDS ORDERED: KETOROLAC TROMETHAMINE 60 MG/2 ML VIAL ONE (10:58)
== END 2020-08-26 13:00 | disposition home or self-care (01) ==
LOC: JERFT 10:43
PROC: 3E0233Z Introduction of Anti-inflammatory into Muscle, Percutaneous Approach (ICD-10-PCS; principal; 2020-08-26)
DX: S83.91XA Sprain of unspecified site of right knee, initial encounter (principal)
CPT/HCPCS: 73562-TC-RT-FY; 99284-25

== ENCOUNTER 2021-01-14 16:09 | Emergency (ER) | payer OTHER ==
[2021-01-14 16:34] VITALS: BP 100/67; PULSE 81; TEMP 98.2; BMI 22.4
[2021-01-14] MEDS ORDERED: ALBUTEROL SO4 HFA INHALER IH ONE ×2 (18:11→18:25)
[2021-01-14] MEDS ORDERED: guaiFENesin 200 MG/10 ML 10 ML UNIT-DOSE CUPS PO ONE (18:11)
[2021-01-14] MEDS ORDERED: guaiFENesin/D-METHORPHAN HB 10 ML UNIT-DOSE CUPS ONE (18:25)
== END 2021-01-14 20:38 | disposition home or self-care (01) ==
LOC: MERGE 16:09 → JER 16:09
DX: J06.9 Acute upper respiratory infection, unspecified (principal)
CPT/HCPCS: 71046-TC-FY; 87804; 87807; 99284-25; C9803; U0003; U0005

== ENCOUNTER 2021-02-01 11:24 | Emergency (ER) | payer OTHER ==
[2021-02-01 11:44] VITALS: BP 116/72; PULSE 80; TEMP 97.9; BMI 22.3
== END 2021-02-01 12:05 | disposition home or self-care (01) ==
LOC: JER 11:24
DX: R05.1 Acute cough (principal)
CPT/HCPCS: 99281-25

== ENCOUNTER 2021-10-27 17:39 | Emergency (ER) | payer OTHER ==
[2021-10-27 17:47] VITALS: BP 118/80; PULSE 98; RESP 18; TEMP 98.1; BMI 23.7
[2021-10-27] MEDS ORDERED: ACETAMINOPHEN 500 MG TABLET (FP) PO ONE (19:13)
[2021-10-27] MEDS ORDERED: ACETAMINOPHEN 500 MG TABLET (FP) ONE (19:25)
== END 2021-10-27 20:35 | disposition home or self-care (01) ==
LOC: JERFT 17:39
DX: O9A.211 Injury, poisoning and certain other consequences of external causes complicating pregnancy, first trimester (principal); S93.401A Sprain of unspecified ligament of right ankle, initial encounter; Z3A.11 11 weeks gestation of pregnancy
CPT/HCPCS: 73610-TC-RT-FY; 99283-25

== ENCOUNTER 2022-02-03 20:08 | Emergency (ER) | payer OTHER ==
[2022-02-03 21:16] VITALS: BMI 27.6
[2022-02-03] MEDS ORDERED: ACETAMINOPHEN 325 MG TABLET (FP) PO ONE (22:24)
[2022-02-03] MEDS ORDERED: ALBUTEROL SO4 HFA INHALER IH ONE (23:22)
[2022-02-04] MEDS ORDERED: ACETAMINOPHEN 325 MG TABLET (FP) ONE (00:02)
[2022-02-04 01:08] VITALS: BP 109/68; PULSE 96; RESP 18; TEMP 98.2
== END 2022-02-04 01:03 | disposition home or self-care (01) ==
LOC: JER 20:08
DX: O26.892 Other specified pregnancy related conditions, second trimester (principal); R68.83 Chills (without fever); R42 Dizziness and giddiness
CPT/HCPCS: 0241U-QW; 99283-25

== ENCOUNTER 2023-03-10 19:46 | Emergency (ER) | payer OTHER ==
[2023-03-10 19:56] VITALS: BP 119/86; PULSE 69; RESP 18; TEMP 98.3; BMI 23.7
[2023-03-10] MEDS ORDERED: ACETAMINOPHEN 500 MG TABLET (FP) PO ONE (22:04)
[2023-03-10] MEDS ORDERED: AMOX TR/POT CLAV 875MG/125MG TABLETS (FP) PO ONE (22:04)
[2023-03-10] MEDS ORDERED: ACETAMINOPHEN 500 MG TABLET (FP) ONE (22:05)
[2023-03-10] MEDS ORDERED: AMOX TR/POT CLAV 875MG/125MG TABLETS (FP) ONE (22:05)
== END 2023-03-10 22:10 | disposition home or self-care (01) ==
LOC: JERFT 19:46
DX: K08.89 Other specified disorders of teeth and supporting structures (principal); K04.7 Periapical abscess without sinus
CPT/HCPCS: 99283-25

== ENCOUNTER 2023-03-12 12:29 | Emergency (ER) | payer OTHER ==
[2023-03-12 12:57] VITALS: BP 111/71; PULSE 87; RESP 18; TEMP 98; BMI 22.3
[2023-03-12] MEDS ORDERED: DEXAMETHASONE 4 MG TABLET (FP) PO ONE (14:20)
[2023-03-12] MEDS ORDERED: DEXAMETHASONE SOD PHOSPHATE 10 MG/1 ML VIAL ONE (14:21)
[2023-03-12] MEDS ORDERED: DEXAMETHASONE 4 MG TABLET (FP) ONE (14:22)
[2023-03-12] MEDS ORDERED: CHLORHEXIDINE GLUCONATE 0.12% 15ML CUP MM ONE (14:45)
== END 2023-03-12 14:29 | disposition home or self-care (01) ==
LOC: JER 12:29
DX: R22.0 Localized swelling, mass and lump, head (principal)
CPT/HCPCS: 99283-25

== ENCOUNTER 2023-06-12 20:51 | Emergency (ER) | payer OTHER ==
[2023-06-12 21:06] VITALS: BP 110/73; PULSE 87; RESP 18; TEMP 97.3; BMI 24.4
== END 2023-06-13 01:00 | disposition left against medical advice (07) ==
LOC: JER 20:51
DX: F41.0 Panic disorder [episodic paroxysmal anxiety] (principal)
CPT/HCPCS: 93005; 93010; 99283-25

== ENCOUNTER 2024-04-05 01:58 | Emergency (ER) | payer OTHER ==
[2024-04-05 02:11] VITALS: BP 113/86; PULSE 81; RESP 16; TEMP 97.8; BMI 24.4
== END 2024-04-05 03:57 | disposition home or self-care (01) ==
LOC: JER 01:58
DX: Z00.00 Encounter for general adult medical examination without abnormal findings (principal); Z20.822 Contact with and (suspected) exposure to COVID-19
CPT/HCPCS: 0241U-QW; 99283-25